=== PATIENT | male | born 1950 | race Caucasian/White ===

== ENCOUNTER 2023-11-21 06:45 | Day surgery (SDC) | payer OTHER ==
[2023-11-11 16:38] LABS: BILIRUBIN,URINE NEGATIVE (Neg); CLARITY,URINE CLEAR (Clear); COLOR,URINE YELLOW (Yellow); GLUCOSE, URINE >=1000 mg/dl (Neg); KETONES,URINE NEGATIVE (Neg); LEUKOCYTE ESTERASE ,URINE NEGATIVE (Neg); NITRITES, URINE NEGATIVE (Neg); OCCULT BLOOD,URINE NEGATIVE (Neg); PROTEIN,URINE NEGATIVE (Neg); UROBILINOGEN,URINE 0.2 E.U/dL (0.2-1.0)
[2023-11-11 16:40] LABS: UA COLLECTION TYPE CLN CATCH MIDSTREAM
[2023-11-11 16:44] LABS: MUCUS STRANDS MANY /LPF (Neg)
[2023-11-11 16:45] LABS: BACTERIA,URINE FEW /HPF (Neg); SPERM FEW /HPF (NEGATIVE); SQUAMOUS EPITHELIAL CELL,UR FEW /LPF (FEW); WBC,URINE 0-4 /HPF (0-4)
[2023-11-11 16:46] LABS: BASOPHILS # (AUTO) 0.1 X10'3 (0-0.2); EOSINOPHILS # (AUTO) 0.2 X10'3 (0-0.9); LYMPHOCYTES # (AUTO) 1.9 X10'3 (1.1-4.8); LYMPHOCYTES % (AUTO) 22.1 % (21-51); MEAN CORPUSCULAR HEMOGLOBIN 30.6 PG (27.0-31.0); MEAN CORPUSCULAR VOLUME 92.7 FL (78-98); MEAN PLATELET VOLUME 8.1 FL (7.4-10.4); MONOCYTES # (AUTO) 0.9 X10'3 (0-0.9); MONOCYTES % (AUTO) 10.5 % (2-12); NEUTROPHILS # (AUTO) 5.5 X10'3 (1.8-7.7); NEUTROPHILS % (AUTO) 64.4 % (42-75); PRE OP HEMATOCRIT 45.7 % (42.0-52.0); PRE OP HEMOGLOBIN 15.1 g/dL (14.0-17.9); PRE OP PLATELET COUNT 190 X10'3 (140-440); PRE OP WHITE BLOOD COUNT 8.6 10'3 (4.8-10.8); RED BLOOD COUNT 4.92 X10'6 (4.70-6.10); RED CELL DISTRIBUTION WIDTH 14.9 % (11.5-14.5)
[2023-11-11 17:06] LABS: ALBUMIN 3.6 G/DL (3.4-5.0); ALBUMIN/GLOBULIN RATIO 0.8 (1.1-1.5); ALKALINE PHOSPHATASE 185 IU/L (46-116); BLOOD UREA NITROGEN 20 MG/DL (7-18); BUN/CREATININE RATIO 17.9 (10.0-20.0); CALCIUM 9.3 MG/DL (8.5-10.1); CHLORIDE 103 MMOL/L (99-107); CREATININE 1.12 MG/DL (0.60-1.10); PRE OP ALT 35 U/L (30-65); PRE OP ANION GAP 6 (8-16); PRE OP AST 31 U/L (10-37); PRE OP BILIRUB, TOTAL 0.6 MG/DL (0.0-1.0); PRE OP GLUCOSE 128 MG/DL (70-104); PRE OP POTASSIUM 4.6 MMOL/L (3.4-5.1); PRE OP SODIUM 140 MMOL/L (135-145); TOTAL CARBON DIOXIDE 30.7 MMOL/L (24-32); TOTAL PROTEIN 8.2 G/DL (6.4-8.2); eGFR 64 ML/MIN
[~2023-11-21] VITALS: Ht 180.3 cm; Wt 76.0 kg
[2023-11-21] VITALS (9 sets, daily range): BP systolic 94–131; BP diastolic 50–90; PULSE 70–92; RESP 9–18; TEMP 97.4; O2SAT 71–100
[~2023-11-21 06:45] MED LIST: ALOG12.52 PO; APIX5TAB3 PO; ATOR20TA PO; BUPR150T8 PO; CYCL-394 PO; DIGO250T PO; DOCUMENT DATE & TIME OF BETA-BLOCKER PO ONE; DULO-31 PO; EMPA1TAB7 PO; FLO0.4C PO; GABA300C PO; METO200T49 PO; MIRT-67 PO; MULT-1249 PO; OMEP20CA16 PO; cefazolin 2gm/D5W 100mL 100 ML IV ONE; famotidine 20mg tablet PO ONE; ringers solution, lacted 1,000 ML IV SCH
[2023-11-21] MEDS ORDERED: ringers solution, lacted 1,000 ML IV SCH (08:25)
[2023-11-21] MEDS ORDERED: proCHLORperazine 10 MG/2 ml inj IV PRN (08:25)
[2023-11-21] MEDS ORDERED: HYDROmorphone/PF 0.2 MG/ML SYRINGE IV PRN ×2 (08:25)
[2023-11-21] MEDS ORDERED: hydrALAZINE 20mg/ml inj. IV PRN (08:25)
[2023-11-21] MEDS ORDERED: acetaminophen 1,000mg/100ml IV 100 ML IV ONE (08:25)
[2023-11-21] MEDS ORDERED: ondansetron/PF 4mg/2ml inj IV PRN (08:25)
[2023-11-21] MEDS ORDERED: morphine 2 MG/ML inj. syringe IV PRN (08:25)
[2023-11-21] MEDS ORDERED: labetalol 20mg/4ml (5mg/ml) syringe IV PRN (08:25)
[2023-11-21] MEDS ORDERED: morphine 4 MG/ML inj SYRINge IV PRN (08:25)
[2023-11-21] MEDS ORDERED: sevoflurane 250ml liquid IH ONE (08:32)
[2023-11-21] MEDS ORDERED: fentaNYL/PF 50MCG/1 ML 2ML syringe ONE (08:44)
[2023-11-21] MEDS ORDERED: midazolam 1 mg/ML 2ml injection ONE (08:44)
[2023-11-21] MEDS ORDERED: dexamethasone sod phosphate 4mg/ml inj. ONE (09:22)
[2023-11-21] MEDS ORDERED: ROPIVAcaine 0.5% (5mg/ml) 30ml vial ONE (09:22)
[2023-11-21] MEDS ORDERED: propofol inj 20 ML IV ONE (09:22)
[2023-11-21] MEDS ORDERED: LIDOcaine 2% (20mg/ml) 5ml vial ONE (09:22)
[2023-11-21] MEDS ORDERED: 0.9 % SODIUM CHLORIDE 10 ML VIAL ONE ×2 (09:22)
[2023-11-21] MEDS ORDERED: ondansetron/PF 4mg/2ml inj ONE (09:23)
[2023-11-21] MEDS ORDERED: phenylephrine 10mg/ml inj. -priapism dosing ONE (09:23)
[2023-11-21] MEDS ORDERED: ePHEDrine 50MG/ML INJ. ONE (09:23)
[2023-11-21] MEDS ORDERED: bacitracin 15gm ointment TP ONE ×2 (09:30→10:01)
== END 2023-11-21 11:42 | disposition home or self-care (01) ==
LOC: PAS 06:45
PROVIDERS: ATTEND Podiatrist Foot & Ankle Surgery
DX: M76.62 Achilles tendinitis, left leg (principal); M21.6X2 Other acquired deformities of left foot; I48.91 Unspecified atrial fibrillation; I11.0 Hypertensive heart disease with heart failure; I50.9 Heart failure, unspecified; E78.5 Hyperlipidemia, unspecified; F32.A Depression, unspecified; K21.9 Gastro-esophageal reflux disease without esophagitis; N40.0 Benign prostatic hyperplasia without lower urinary tract symptoms; E11.9 Type 2 diabetes mellitus without complications; G89.18 Other acute postprocedural pain; F17.210 Nicotine dependence, cigarettes, uncomplicated; Z86.73 Personal history of transient ischemic attack (TIA), and cerebral infarction without residual deficits; Z86.19 Personal history of other infectious and parasitic diseases; Z79.899 Other long term (current) drug therapy
CPT/HCPCS: 27650; 28118; 36415; 64445; 64450; 73620; 76942; 80053; 81001; 82948; 85025; 93005; A6222; C1713; J0690; J1100; J2250; J2370; J2405; J2704; J2795; J3010; J3490; J7030; J7120; Z7506; Z7508; Z7512; 76000; A4215; A4618; A6253; A6449; A7000